=== PATIENT | male | born 1995 | race Caucasian/White ===

== ENCOUNTER 2019-08-25 09:04 | Outpatient (CLI) | payer OTHER, SELFPAY ==
[2019-08-25 09:34] LABS: Basophils Percent Auto 0.4 % (0.2-1.2); Eosinophils Absolute Auto 0.1 K/mm3 (0-0.3); Eosinophils Percent Auto 1.1 % (0-4.4); Hematocrit 47.7 % (42.0-52.0); Hemoglobin 15.6 g/dL (14.0-18.0); Immature Granulocyte Absolute 0.04 K/mm3 (0.00-0.031); Immature Granulocyte Percent A 0.4 % (0-0.5); Lymphocytes Absolute Auto 1.15 K/mm3 (0.9-3.2); Lymphocytes Percent Auto 10.1 % (18.3-44.2); Mean Corpuscular HGB Conc 32.7 g/dl (32-36); Mean Corpuscular Hemoglobin 29.9 pg (26-34); Mean Corpuscular Volume 91.4 fl (80-100); Mean Platelet Volume 10.1 fl (7.4-10.4); Monocytes Absolute Auto 0.9 K/mm3 (0.1-0.6); Monocytes Percent Auto 7.9 % (2.6-8.5); Neutrophils Absolute Auto 9.1 K/mm3 (1.3-6.7); Neutrophils Percent Auto 80.1 % (45.5-73.1); Platelet Count Result 257 k/mm3 (150-375); Red Blood Count 5.22 M/mm3 (4.6-6.20); White Blood Count 11.4 K/mm3 (4.5-10.0)
[2019-08-25 09:41] LABS: Influenza Control Positive
== END 2019-08-25 09:05 | disposition home or self-care (01) ==
PROVIDERS: PCP Internal Medicine; Visit Provider Internal Medicine
DX: R68.89 Other general symptoms and signs (principal)
CPT/HCPCS: 85025; 87081; 87804; 87880

== ENCOUNTER 2020-10-11 10:46 | Outpatient (CLI) | payer OTHER, SELFPAY ==
--- NOTE | ~2020-10-11 | US_ITS ---
EXAMINATION: US venous doppler [facility] DATE: 10/11/2020 11:19 INDICATION: Left lower limb pain TECHNIQUE: Tucker scale images without and with compression and Doppler images of the left lower extrem ity veins were obtained. COMPARISON: None FINDINGS: The left common femoral vein, profunda femoral vein, femoral vein, popliteal vein, peroneal trunk, posterior tibial veins, and greater saphenous vein are patent. IMPRESSION: 1. Patent left lower extremity veins. No evidence of deep venous thrombosis. Reviewed, dictated and finalized at location A.
== END 2020-10-11 10:47 | disposition home or self-care (01) ==
PROVIDERS: PCP Internal Medicine; Visit Provider Orthopaedic Surgery
DX: M79.662 Pain in left lower leg (principal); M79.89 Other specified soft tissue disorders
CPT/HCPCS: 93971

== ENCOUNTER → 2020-10-24 07:08 | Outpatient (CLI) | payer OTHER, SELFPAY ==
--- NOTE | ~2020-10-24 | MR_ITS ---
EXAMINATION: MR knee LT wo con DATE: 10/24/2020 07:55 INDICATION: Generalized left knee pain. TECHNIQUE: Magnetic resonance imaging (MRI) of the left knee was performed without intravenous contra st. Sequences included axial PD-weighted FS FSE, coronal PD-weighted FSE and PD-weighted FS FSE, sagi ttal PD-weighted FSE, and sagittal T2-weighted FS FSE. COMPARISON: Left knee radiographs 10/11/2020 FINDINGS: Medial compartment: Medial meniscus is normal. Medial compartment cartilage is normal. Lateral compartment: Lateral meniscus is normal. Lateral compartment cartilage is normal. Patellofemoral compartment: Patellar cartilage is normal. Trochlear cartilage is normal. Ligaments and tendons: The anterior cruciate ligament is normal. There is a complete tear of posterior cruciate ligament. Th ere are changes of prior sprains of medial collateral ligament and fibular collateral ligament charac terized by thickening and increased signal intensity proximally. There is edema around the medial col lateral ligament. There is mild patellar tendinopathy. There is a small partial tear of the myotendin ous junction of semimembranosus. Fluid: There is a small knee joint effusion. There is a small ruptured Lainez's cyst. Osseous/other: There is bone marrow edema-like marrow signal intensity in anterior proximal tibia and in lateral asp ect of lateral femoral condyle, consistent with contusions. IMPRESSION: 1. Complete tear of posterior cruciate ligament. 2. Mild sprains of medial collateral ligament and fibular collateral ligament. 3. Mild semimembranosus muscle strain. 4. Small knee joint effusion. 5. Small ruptured Lainez's cyst. 6. Contusions of anterior aspect of proximal tibia and lateral aspect of lateral femoral condyle. Reviewed, dictated and finalized at location A. IMPRESSION: 1. Complete tear of posterior cruciate ligament. 2. Mild sprains of medial collateral ligament and fibular collateral ligament. 3. Mild semimembranosus muscle strain. 4. Small knee joint effusion. 5. Small ruptured Lainez's cyst. 6. Contusions of anterior aspect of proximal tibia and lateral aspect of latera l femoral condyle.
--- NOTE | ~2020-10-24 | XR_ITS ---
EXAMINATION: XR orbit foreign body EXAM DATE: 10/24/2020 07:30 INDICATION: Possible metal exposure. TECHNIQUE: Orbital of angle, lateral projections for interpretation. There is no prior study for co mparison. FINDINGS: There are no acute fractures or dislocations identified. There is no subcutaneous gas. Th e soft tissue is unremarkable. There are no radiopaque foreign bodies. IMPRESSION: No radiopaque foreign bodies identified. Reviewed, dictated and finalized at location A.
== END ==
PROVIDERS: PCP Internal Medicine; Visit Provider Orthopaedic Surgery
DX: M25.562 Pain in left knee (principal); S83.522A Sprain of posterior cruciate ligament of left knee, initial encounter; S83.412A Sprain of medial collateral ligament of left knee, initial encounter; S86.812A Strain of other muscle(s) and tendon(s) at lower leg level, left leg, initial encounter; M25.462 Effusion, left knee; M71.22 Synovial cyst of popliteal space [Baker], left knee; S80.02XA Contusion of left knee, initial encounter
CPT/HCPCS: 73721

== ENCOUNTER 2024-06-05 18:58 | Emergency (ER) | payer OTHER, SELFPAY ==
[2024-06-05 19:39] LABS: EDCOVIDSCREEN Negative (Negative); EDINFLUASCREEN Negative (Negative); EDINFLUBSCREEN Negative (Negative); EDSTREPNEGPOS1 Negative (Negative)
--- NOTE | 2024-06-05 19:43 | ED_ITS ---
HPI - URI/Sore Throat General Chief Complaint: Upper Respiratory Infection Stated Complaint: fever,chills,cough,body aches, throat hurts Time Seen by Provider: 06/05/24 19:37 Source: patient and RN notes reviewed Mode of arrival: ambulatory Limitations: no limitations History of Present Illness HPI Narrative: Patient presents today with a 3 day history fever, cough, nasal congestion, headache, chills and sweats. He has tried DayQuil and ibuprofen with some mild relief. No history of asthma. Patient is a nonsmoker. Significant other with similar symptoms. Related Data Home Medications ?Medication ?Instructions ?Recorded ?Confirmed ?Last Taken ?Type omega-3 fatty acids 1,000 mg 1,000 mg PO BID 06/17/19 06/05/24 Unknown History capsule (Fish Oil Concentrate) cholecalciferol (vitamin D3) 50 50 mcg PO DAILY 03/18/23 06/05/24 Unknown History mcg (2,000 unit) capsule Allergies Allergy/AdvReac Type Severity Reaction Status Date / Time No Known Allergies Allergy Verified 06/05/24 19:16 Review of Systems Review of Systems: CONSTITUTIONAL: Denies body aches. + fever, chills, congestion EYES: Denies visual changes, redness, or discharge. ENT: Denies rhinorrhea, sore throat, or otalgia.+ congestion CARDIOVASCULAR: Denies chest pain, palpitations, or edema. RESPIRATORY: Denies dyspnea.+ cough GASTROINTESTINAL: Denies abdominal pain, nausea, vomiting, or diarrhea. GENITOURINARY: Denies dysuria or hematuria. SKIN: Denies rash, itching, or wounds. MUSCULOSKELETAL: Denies back pain, joint pain, or myalgia. NEUROLOGIC: Denies numbness, tingling, or weakness.+ headache PSYCH: Denies depression or anxiety. [facility] Past Medical History Medical History Impacted cerumen of right ear Myopia Cervicalgia Encounter for routine adult health examination with abnormal findings Tear of PCL (posterior cruciate ligament) of knee Left knee injury Left knee pain Personal history of covid-19 BMI 26.0-26.9,adult Dyslipidemia BMI 25.0-25.9,adult Encounter for routine adult health examination without abnormal findings BMI 27.0-27.9,adult Abnormal finding of blood chemistry, unspecified Vitamin D deficiency Encounter for preventive health examination On halfway drug therapy ADD (attention deficit disorder) Family History Family History Father Hypertension Patient's father is in good health Family history of elevated blood lipids Family history of hypercholesterolemia Mother Patient's mother is in good health Family history of elevated blood lipids Family history of hypercholesterolemia Social History Social History Smoking status: Never smoker Second hand tobacco smoke exposure: No Alcohol intake: current Lack of Transportation: No Lack of Food: Never True Current Housing: I Have Housing Concerned About Future Housing: No Difficulty Paying Gas/Electric Bills: No Difficulty Paying for Meds: No Currently Unemployed: No Education: Bachelor's Degree Difficulty w/ Childcare or Family Care: No Living arrangements: with roommate(s) Occupation/Education: occupation 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 Please see nursing chart for further information. There is no relevant family history pertinent to the presenting complaint Exam Narrative: GENERAL: Mildly ill-appearing, well-nourished, and in no acute distress. HEAD: Normocephalic, atraumatic. EYES: EOMI. No redness or drainage. Conjunctivae normal. ENT: Mucous membranes pink and moist. Nares congested with rhinorrhea. TMs normal bilaterally. Throat normal. Uvula midline. NECK: Normal AROM. Supple. No lymphadenopathy. CHEST: No respiratory distress. Clear to auscultation. HEART: Regular rate and rhythm. No murmur appreciated. EXTREMITIES: Normal range of motion. No edema. SKIN: Warm, dry, no rash. Capillary refill normal. Normal skin turgor. NEURO: No focal deficits. Alert and oriented x3. Gait steady. PSYCH: Normal affect. No signs of depression or anxiety. Course Course Level of Care: Express Care Visit Vital Signs Vital signs: Vital Signs Temperature 99.1 F 06/05/24 19:47 Pulse Rate 70 06/05/24 19:47 Respiratory Rate 16 06/05/24 19:47 Blood Pressure 128/68 06/05/24 19:47 Pulse Oximetry 99 06/05/24 19:47 Temperature 99.1 F 06/05/24 19:47 Pulse Rate 70 06/05/24 19:47 Respiratory Rate 16 06/05/24 19:47 Blood Pressure 128/68 06/05/24 19:47 Pulse Oximetry 99 06/05/24 19:47 Reviewed MDM - URI/Sore Throat MDM Narrative Medical decision making narrative: Influenza, COVID, rapid strep negative. Strep culture pending. Symptoms likely viral in etiology. Discussed [id number] medication use and duration of illness. No prescription medications indicated at this time. Anticipatory guidance given. Differential Diagnosis Differential diagnosis: Likely upper respiratory infection, sinusitis, viral infection, influenza and other (Strep throat, COVID) Lab Data Attestation: I reviewed the patient's lab results. Labs: Lab Results 06/05/24 Range/Units 19:36 POC Influenza A Ag Negative (Negative) POC Influenza B Ag Negative (Negative) POC SARS CoV-2 Ag Negative (Negative) POC Grp A Strep Screen Negative (Negative) Critical Care Time Critical Care Time Critical Care Time: No Discharge Plan Discharge Clinical Impression: Upper respiratory infection Qualifiers: URI type: unspecified URI Qualified Code(s): J06.9 - Acute upper respiratory infection, unspecified Patient Disposition: Home, Self-Care Condition: Stable Instructions: Upper Respiratory Infection (DC) Additional Instructions: Your influenza, COVID-19, and strep swabs are negative today at [facility]. You will be notified in a few days if the culture comes back positive for strep, and appropriate antibiotics will be called in for you at that time. Your symptoms are likely due to a viral illness, which is not treated with antibiotics. Viral symptoms can be present for up to 7-10 days. Take Tylenol or ibuprofen for fever or pain. Take Sudafed or Flonase for your nasal congestion and pressure. Rest and stay hydrated. Follow up with your PCP in 7 days if symptoms are not improving. Go to the ER immediately if you have any difficulty breathing or swallowing. Your blood pressure was elevated above 120/80 today at Urgent Care. This puts you above the threshold for follow up. Please schedule a followup visit with your personal physician as soon as possible, for further evaluation and treatment. Even blood pressure exceeding 120/80 may indicate pre-hypertension. Patient Language: Pashto Prescriptions: No Action omega-3 fatty acids [Fish Oil Concentrate] 1,000 mg capsule 1,000 mg PO BID rosuvastatin 20 mg tablet 20 mg PO DAILY Qty: 90 1RF Rx Instructions: Please D?C the Crestor 10mg. Thank you cholecalciferol (vitamin D3) 50 mcg (2,000 unit) capsule 50 mcg PO DAILY Follow-up/Referrals: Pierce Nevarez MD [Primary Care Provider] - Time of Disposition: 19:47
[2024-06-05 19:47] VITALS: BP 128/68; PULSE 70; RESP 16; TEMP 37.3; O2SAT 99
== END 2024-06-05 19:54 | disposition home or self-care (01) ==
PROVIDERS: Emergency Provider Nurse Practitioner; PCP Internal Medicine
DX: J06.9 Acute upper respiratory infection, unspecified (principal); Z20.822 Contact with and (suspected) exposure to COVID-19; E78.5 Hyperlipidemia, unspecified; E55.9 Vitamin D deficiency, unspecified
CPT/HCPCS: 87081; 87426; 87804; 87880; 99213; G0463